=== PATIENT | female | born 2000 | race African-American/Black ===

== ENCOUNTER → 2019-10-13 | Outpatient (CLI) | payer OTHER ==
--- NOTE | 2019-10-13 11:11 | RADIOLOGY REPORT (SQ) ---
EXAM DESCRIPTION: T SPINE AP/LAT IMAGES COMPLETED DATE/TIME: 10/13/2019 10:58 am REASON FOR STUDY: PAIN IN THORACIC SPINE M54.2 CERVICALGIA M54.6 PAIN IN THORACIC SPINE COMPARISON: None. NUMBER OF VIEWS: Two views. TECHNIQUE: AP and lateral radiographic images acquired of the thoracic spine. LIMITATIONS: None. FINDINGS: MINERALIZATION: Normal. ALIGNMENT: Minimal levoconvex lumbar curvature. VERTEBRAE: No fracture or bone lesion. Maintained height, normal segmentation. DISCS: No significant loss of height or significant narrowing. No large osteophytes. HARDWARE: None in the spine. MEDIASTINUM AND SOFT TISSUES: Normal heart size and aortic contour. No soft tissue abnormality. VISUALIZED LUNG KHANNA: Clear. OTHER: No other significant finding. IMPRESSION: No evidence of acute bony abnormality. Minimal levoconvex lumbar curvature. TECHNICAL DOCUMENTATION: JOB ID: [id number] 2010 [employer]- All Rights Reserved Reading location - IP/workstation name: [email or web address]
--- NOTE | 2019-10-13 11:12 | RADIOLOGY REPORT (SQ) ---
EXAM DESCRIPTION: C SP 4 OR 5 VIEWS IMAGES COMPLETED DATE/TIME: 10/13/2019 10:58 am REASON FOR STUDY: CERVICALGIA M54.2 CERVICALGIA M54.6 PAIN IN THORACIC SPINE COMPARISON: None. NUMBER OF VIEWS: 6 views. TECHNIQUE: AP, lateral, obliques and odontoid radiographic images acquired of the cervical spine. LIMITATIONS: None. FINDINGS: MINERALIZATION: Normal. ALIGNMENT: Straightening of the normal cervical lordosis, likely position. VERTEBRAE: Vertebral bodies of normal height. DISCS: No significant osteophytes or sclerosis. Disc height maintained. FORAMINA: No osteophytes or foraminal narrowing. LATERAL AND POSTERIOR ELEMENTS: Facets, lateral masses and spinous processes without significant find ings. HARDWARE: None in the spine. SOFT TISSUES: No masses or calcifications. Lung apices clear. OTHER: No other significant finding. IMPRESSION: No evidence of acute bony abnormality of the cervical spine. No significant degenerativ e change. Straightening of the normal cervical lordosis, likely positional. TECHNICAL DOCUMENTATION: JOB ID: [id number] 2010 [employer]- All Rights Reserved Reading location - IP/workstation name: [email or web address]
== END ==
LOC: OD 10:11
PROVIDERS: ATTEND Nurse Practitioner Family
DX: M54.2 Cervicalgia (principal); M54.6 Pain in thoracic spine; M43.8X4 Other specified deforming dorsopathies, thoracic region
CPT/HCPCS: 72050; 72070

== ENCOUNTER 2019-12-22 19:16 | Emergency (ER) | payer OTHER ==
--- NOTE | 2019-12-22 20:03 | ER Document Report ---
ED Medical Screen (RME) - General Chief Complaint: Vaginal Bleeding Stated Complaint: VAGINAL BLEEDING/ABDOMINAL PAIN Time Seen by Provider: 12/22/19 20:01 Primary Care Provider: CELESTE CUMMINGS NP [Primary Care Provider] - Follow up as needed Mode of Arrival: Wheelchair Information source: Patient Notes: 19-year-old female presents to ED for complaint of vaginal bleeding that started this morning. She states that last week she had severe abdominal pain cramping feeling hot feeling like she was go flush over. She states her primary care doctor told her to stop taking the control pill she was on and to start a different 1. She states she stopped 1 but did not start another 1 and then she started having her period today. She states she is not she does not think. She is alert oriented respirations regular and unlabored speaking in full sentences. She does have abdominal pain bilateral next week. She states she does feel nauseated but has not had any emesis. She states she had a similar thing [place] to [place] in another state and the car blew it off and did not ever really tell her what was wrong. She states she did have a very large cyst at that time and then the next time she saw someone they told was she did not have a cyst anymore. I have greeted and performed a rapid initial assessment of this patient. A comprehensive ED assessment and evaluation of the patient, analysis of test results and completion of medical decision making process will be conducted by an additional ED providers. - Related Data Allergies/Adverse Reactions: grass pollen Allergy (Verified 12/22/19 20:01) DUST Allergy (Uncoded 12/22/19 20:01) Physical Exam - Vital signs Vitals: Temp Pulse Resp BP Pulse Ox 98.6 F 81 20 123/82 100 12/22/19 19:33 12/22/19 19:33 12/22/19 19:33 12/22/19 19:33 12/22/19 19:33 Course - Vital Signs Vital signs: Temp Pulse Resp BP Pulse Ox 98.6 F 81 20 123/82 100 12/22/19 19:33 12/22/19 19:33 12/22/19 19:33 12/22/19 19:33 12/22/19 19:33 Doctor's Discharge - Discharge Referrals: CELESTE CUMMINGS NP [Primary Care Provider] - Follow up as needed
--- NOTE | 2019-12-22 20:54 | RADIOLOGY REPORT (SQ) ---
US PELVIS HISTORY: Pelvic pain. Vaginal bleeding. COMPARISON: None. TECHNIQUE: Grayscale, color Doppler, and spectral Doppler ultrasound images of the pelvis were obtained. FINDINGS: The uterus is retroverted and measures 7.0 x 4.1 x 3.7 cm. The endometrium is 3 mm in thickness. The cervix is 2.1 cm and is closed. Both ovaries are normal in size and contain normal follicles, with the right ovary measuring 3.4 x 2.5 x 2.1 cm and the left ovary measuring 3.1 x 2.4 x 1.8 cm. No free fluid is seen. IMPRESSION: Normal pelvic ultrasound.
[2019-12-22 22:19] LABS: ABSOLUTE BASOPHILS # (AUTO) 0.1 10^3/uL (0.0-0.2); ABSOLUTE EOSINOPHILS # (AUTO) 0.1 10^3/uL (0.0-0.6); ABSOLUTE LYMPHOCYTES (AUTO) 4.2 10^3/uL (0.5-4.7); ABSOLUTE MONOCYTES (AUTO) 0.5 10^3/uL (0.1-1.4); ABSOLUTE NEUT (AUTO) 4.3 10^3/uL (1.7-8.2); BASOPHILS % (AUTO) 0.6 % (0-2); EOSINOPHILS % (AUTO) 1.5 % (0-6); HEMATOCRIT 39.3 % (36.0-47.0); HEMOGLOBIN 13.3 g/dL (12.0-15.5); LYMPHOCYTES % (AUTO) 45.9 % (13-45); MEAN CORPUSCULAR HEMOGLOBIN 29.6 pg (27.0-33.4); MEAN CORPUSCULAR HGB CONC 33.7 g/dL (32.0-36.0); MEAN CORPUSCULAR VOLUME 88 fl (80-97); MONOCYTES % (AUTO) 5.8 % (3-13); PLATELET COUNT 239 10^3/uL (150-450); RED BLOOD COUNT 4.47 10^6/uL (3.72-5.28); RED CELL DISTRIBUTION WIDTH 13.9 % (11.5-14.0); SEGMENTED NEUTROPHILS % (AUTO) 46.2 % (42-78); TOTAL CELLS COUNTED % (AUTO) 100 %; WHITE BLOOD COUNT 9.2 10^3/uL (4.0-10.5)
[2019-12-22 22:31] LABS: APPEARANCE,URINE CLOUDY; BILIRUBIN,URINE NEGATIVE (NEGATIVE); COLOR,URINE YELLOW; GLUCOSE, URINE NEGATIVE (NEGATIVE); KETONES,URINE NEGATIVE (NEGATIVE); LEUKOCYTE ESTERASE,URINE NEGATIVE (NEGATIVE); NITRITE,URINE NEGATIVE (NEGATIVE); PROTEIN,URINE 100 mg/dL (NEGATIVE); URINE SPECIFIC GRAVITY 1.027
[2019-12-22 22:38] LABS: ALBUMIN 4.2 g/dL (3.5-5.0); ALKALINE PHOSPHATASE 82 U/L (38-126); ANION GAP 7 (5-19); ASPARTATE AMINO TRANSFERASE 29 U/L (14-36); BILIRUBIN,TOTAL 0.3 mg/dL (0.2-1.3); BLOOD UREA NITROGEN 10 mg/dL (7-20); CALCIUM 9.6 mg/dL (8.4-10.2); CARBON DIOXIDE 26 mmol/L (22-30); CHLORIDE 104 mmol/L (98-107); GLUCOSE 78 mg/dL (75-110); TOTAL PROTEIN 7.5 g/dL (6.3-8.2)
[2019-12-23] MEDS ORDERED: FAMOTIDINE 20 MG TABLET PO ONE (03:32)
--- NOTE | 2019-12-23 04:46 | ER Document Report ---
ED General - General Chief Complaint: Vaginal Bleeding Stated Complaint: VAGINAL BLEEDING/ABDOMINAL PAIN Time Seen by Provider: 12/22/19 20:01 Primary Care Provider: ED SCHNEIDER MD [ACTIVE STAFF] - Follow up as needed CELESTE CUMMINGS NP [NURSE PRACTITIONER] - Follow up as needed Mode of Arrival: Wheelchair - [facility] Notes: 19-year-old female history of ovarian cysts presents with unexpected vaginal bleeding. Patient had previously been on low-dose OCP and was switched to a higher dose estrogen because she did not like side effects then patient stopped taking OCP altogether several days before bleeding began. She presented to ED in the evening after bleeding had started the same morning and patient is 2-4 pads total throughout that time for the bleeding. Patient denies blood being heavier than her normal menstrual bleeding but says is different, unable to explain how. Patient on the day of presentation felt generally weak and lightheaded and "not herself "and she had one episode where she felt like her chest ache diffusely and she could not breathe while she was at work which resolved several hours before presenting to ED. patient denies vaginal discharge, pelvic pain, syncope, exertional chest pain, pleuritic chest pain, lower extremity edema, recent travel/trauma/immobilization, cancer history, cardiac history, family history, fever, cough, urinary symptoms, drug use - Related Data Allergies/Adverse Reactions: grass pollen Allergy (Verified 12/22/19 20:01) DUST Allergy (Uncoded 12/22/19 20:01) Past Medical History - General Information source: Patient - Social History Smoking Status: Never Smoker Frequency of alcohol use: None Drug Abuse: None Family History: Reviewed & Not Pertinent Patient has homicidal ideation: No Review of Systems - Review of Systems Notes: REVIEW OF SYSTEMS: CONSTITUTIONAL : Denies fever, chills, or sweats. EENT: Denies recent cold/sinus symptoms, denies throat pain CARDIOVASCULAR: + chest pain, -ADRI RESPIRATORY: Denies cough, +shortness of breath. GASTROINTESTINAL: Denies abdominal pain, nausea/vomiting. GENITOURINARY: Denies difficulty urinating, painful urination. FEMALE GENITOURINARY: + abnormal vaginal bleeding, -vaginal discharge. MUSCULOSKELETAL: Denies neck pain, back pain. SKIN: Denies rash or skin lesions. HEMATOLOGIC : Denies easy bruising or bleeding. LYMPHATIC: Denies swollen, enlarged glands. NEUROLOGICAL: Denies headache, denies change in gait. PSYCHIATRIC: Denies anxiety or stress or depression. Physical Exam - Vital signs Vitals: Temp 98.6 F 12/22/19 19:17 - Notes Notes: PHYSICAL EXAMINATION: GENERAL: Well-appearing, well-nourished and in no acute distress. HEAD: Atraumatic, normocephalic. EYES: Pupils equal round and appropriate constriction, sclera anicteric, conjunctiva are normal. ENT: nares patent, moist mucous membranes. NECK: Normal range of motion, supple without lymphadenopathy LUNGS: Breath sounds clear to auscultation bilaterally and equal. No wheezes rales or rhonchi. HEART: Regular rate and rhythm without murmurs ABDOMEN: Soft, nontender, no guarding, no masses, no CVAT EXTREMITIES: Normal range of motion, no pitting or edema. No cyanosis. NEUROLOGICAL: Awake, alert, conversing appropriately, moves all extremities spontaneously. PSYCH: Normal mood, normal affect. SKIN: Warm, Dry, normal turgor, no rashes or lesions noted. Course - Re-evaluation Re-evalutation: 12/23/19 05:00 Episode of near syncope and shortness of breath noted hours prior to arrival, given the patient was recently on exogenous estrogen ordered d-dimer to rule out PE as patient's well score was 0. 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 Ordered troponin which was negative and sufficient to rule out ACS given amount of time passed since episode of symptoms. Amounts of vaginal bleeding for menses and expected for patient appropriate for continuing OCP. Patient declined pelvic exam, but unlikely to have contributed meaningfully to patient's evaluation. Patient's hemoglobin was normal. Had extensive discussion with john cook regarding finding of WPW and described what this diagnosis meant in layman's terms and how this could lead to life-threatening/fatal arrhythmias and that it was extremely important that she follow-up with a credit cashier promptly to have evaluation for possible need for medical or ablative management. I gave patient a copy of her EKG and also a copy of all of her test results and imaging. I gave patient a cardiology referral and reiterated the importance of this close follow-up. I also instructed patient to follow-up with PCP and bring all test results when she was for follow-up. Gave patient extensive return to ED precautions which she demonstrated understanding of. - Vital Signs Vital signs: Temp Pulse Resp BP Pulse Ox 98.2 F 85 14 117/68 100 12/23/19 05:08 12/23/19 05:08 12/23/19 05:08 12/23/19 05:08 12/23/19 05:08 - Laboratory Result Diagrams: 12/22/19 22:08 12/22/19 22:08 Laboratory results interpreted by me: 12/22/19 12/22/19 22:08 22:08 Lymph % (Auto) 45.9 H Urine Protein 100 H Urine Blood LARGE H Urine Urobilinogen 2.0 H Urine Ascorbic Acid 20 H - EKG Interpretation by Me Additional EKG results interpreted by me: 12/23/19 05:00 Heart rate 82, sinus rhythm with delta waves consistent with WPW, no significant ST elevations or depressions, QTC 444 Discharge - 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 Causes of abnormal vaginal bleeding can include miscarriage or tubal , tumors such as cancer or benign fibroids, medication effects, or hormone imbalance. Testing can eliminate unsuspected , tumors, or infection as a cause. "Dysfunctional uterine bleeding" is due to hormone imbalance, and is danni cially common at times when the normal cycle is disturbed -- whether by recent , use of control pills or hormones, or impending menopause. If the bleeding is innocent, most commonly a short course of hormones is given to restore the uterus to normal. Sometimes, the normal menstrual cycle corrects itself naturally. Sometimes, brief hormone therapy, or even a D&C is required. Your physician will advise you. Treatment for anemia may be required if bleeding is severe. You should rest and avoid intercourse until the bleeding is controlled. Call the doctor or return for re-examination if you feel faint, have increasing pain, or have a major increase in the amount of bleeding. Chest Pain of Unclear Cause The exact cause of your chest pain isn't clear. Fortunately, there is no evidence of a dangerous medical condition. Further testing may be required to find the source of the pain. Most often, we find that this pain is coming from the chest wall -- the muscl es or rib joints in the chest. But chest pain can come from the lung and lung lining, the esophagus, the heart valves or heart lining, and even the stomach or gallbladder. Rest. Eat lightly until the pain is gone. We may prescribe medicine for pain and inflammation. You should call the physician immediately if the pain radiates to the shoulder, jaw or arms; if you start to run a fever or develop a cough; or if you develop shortness of breath, or other new or alarming symptoms. We have found you to have a condition called Klklx-Hcpquvmdg-Guymc or WPW. This is an abnormal heart rhythm caused by any normal path of the electricity that moves through your heart. It is extremely important that you see a credit cashier within 1 week to further investigate this condition. If at any point you start having dizziness, worsening chest pain, rapid heart rate or palpitations, fainting, or any other worsening or alarming symptoms return to the ED immediately. Patient also follow-up with your primary care doctor and marketing finance manager within 2 weeks. Forms: Return to Work Referrals: CELESTE CUMMINGS NP [NURSE PRACTITIONER] - Follow up as needed ED SCHNEIDER MD [ACTIVE STAFF] - Follow up as needed
--- NOTE | 2019-12-23 04:46 | RADIOLOGY REPORT (SQ) ---
EXAM DESCRIPTION: XR CHEST 2 VIEWS COMPLETED DATE/TME: 12/23/2019 03:30 CLINICAL HISTORY: cp sob COMPARISON: None. FINDINGS: Frontal and lateral views of the chest. Cardiomediastinal silhouette: Normal size and contour. Lungs: No consolidation, pneumothorax, or pleural effusion. Bones: No acute osseous abnormality. Upper abdomen: No abnormality identified. IMPRESSION: 1. No acute pulmonary process identified.
[2019-12-23] MEDS ORDERED: ACETAMINOPHEN SOLN 325 MG/10.15 ML UDCUP PO ONE (05:07)
[2019-12-23 05:14] VITALS: BP 117/68
--- NOTE | 2019-12-23 08:04 | EKG REPORT ---
SEVERITY:- ABNORMAL ECG - SINUS RHYTHM VENT PREEXCITATION, RIGHT ACCESSORY PATHWAY : Confirmed by: Tila Marsh MD 23-Dec-2019 08:03:29
== END 2019-12-23 05:26 | disposition home or self-care (01) ==
LOC: ER 19:16
DX: I45.6 Pre-excitation syndrome (principal); N93.9 Abnormal uterine and vaginal bleeding, unspecified; R07.9 Chest pain, unspecified; R55 Syncope and collapse; R06.02 Shortness of breath; Z79.899 Other long term (current) drug therapy; Z88.8 Allergy status to other drugs, medicaments and biological substances
CPT/HCPCS: 93005; 99284; 36415; 84703; 85025; 80053; 81001; 84484; 85379; 71046; 76830; 93010; J3490

== ENCOUNTER 2020-03-29 04:54 | Emergency (ER) | payer OTHER ==
[2020-03-29] MEDS ORDERED: TRANEXAMIC ACID INJ/PF 1,000 MG/10 ML SDV IV STA (05:23)
--- NOTE | 2020-03-29 05:33 | ER Document Report ---
ED Medical Screen (RME) - General Chief Complaint: Post Surgical Bleeding Stated Complaint: POST OP BLEEDING,SYNCOPE Primary Care Provider: RIGO HYLTON MD [Primary Care Provider] - Follow up as needed Notes: 19-year-old female history of dysfunctional uterine bleeding presents with vaginal bleeding status post vaginal laparoscopy yesterday afternoon during which she says a polyp was removed by Dr. Verdugo. Patient says that she now feels weak and had one episode of syncope prior to arrival without any trauma. Unable to describe how many pads she has used since procedure. Patient denies any fever, abdominal pain/pelvic pain, anticoagulation/bleeding diatheses - Related Data Allergies/Adverse Reactions: grass pollen Allergy (Verified 12/22/19 20:01) DUST Allergy (Uncoded 12/22/19 20:01) Past Medical History - General Information source: Patient, [facility] Records Review of Systems - Review of Systems Constitutional: denies: Chills, Fever Physical Exam - Vital signs Vitals: Temp Pulse Resp BP Pulse Ox 98.1 F 76 18 107/82 100 03/29/20 05:00 03/29/20 05:00 03/29/20 05:00 03/29/20 05:00 03/29/20 05:00 - Notes Notes: Soaked sanitary pad with several large clots, no active bleeding from vagina Course - Re-evaluation Re-evalutation: Soaked sanitary pad with large clots on current examination was placed before patient went to bed yesterday evening, bleeding appears to have slowed, vitals normal, bloods being obtained and IV access established, ordered TXA to increase chance of nonsurgical hemostasis, but patient hemodynamically stable and will defer rest of patient's evaluation to incoming provider. Will continue to monitor patient. I have greeted and performed a rapid initial assessment of this patient. A comprehensive ED assessment and evaluation of the patient, analysis of test results and completion of medical decision making process will be conducted by additional ED provider(s). - Vital Signs Vital signs: Temp Pulse Resp BP Pulse Ox 98.1 F 76 18 107/82 100 03/29/20 05:00 03/29/20 05:00 03/29/20 05:00 03/29/20 05:00 03/29/20 05:00 - EKG Interpretation by Me Additional EKG results interpreted by me: 03/29/20 05:31 Heart rate 84, normal sinus rhythm, no significant ST elevations or depressions, normal intervals isolated T wave inversion in aVL, no significant change from prior EKG Doctor's Discharge - Discharge Referrals: RIGO HYLTON MD [Primary Care Provider] - Follow up as needed
[2020-03-29 06:10] LABS: ABSOLUTE LYMPHOCYTES (AUTO) 1.8 10^3/uL (0.5-4.7); ABSOLUTE MONOCYTES (AUTO) 0.6 10^3/uL (0.1-1.4); ALBUMIN 2.9 g/dL (3.5-5.0); ALKALINE PHOSPHATASE 56 U/L (38-126); ANION GAP 7 (5-19); ASPARTATE AMINO TRANSFERASE 27 U/L (14-36); BASOPHILS % (AUTO) 0.3 % (0-2); BILIRUBIN,DIRECT 0.2 mg/dL (0.0-0.4); BILIRUBIN,TOTAL 0.3 mg/dL (0.2-1.3); BLOOD UREA NITROGEN 14 mg/dL (7-20); CARBON DIOXIDE 23 mmol/L (22-30); CHLORIDE 107 mmol/L (98-107); GLUCOSE 118 mg/dL (75-110); HEMATOCRIT 29.4 % (36.0-47.0); HEMOGLOBIN 9.9 g/dL (12.0-15.5); LYMPHOCYTES % (AUTO) 13.4 % (13-45); MEAN CORPUSCULAR HEMOGLOBIN 29.3 pg (27.0-33.4); MEAN CORPUSCULAR HGB CONC 33.8 g/dL (32.0-36.0); MEAN CORPUSCULAR VOLUME 87 fl (80-97); MONOCYTES % (AUTO) 4.8 % (3-13); PLATELET COUNT 164 10^3/uL (150-450); RED BLOOD COUNT 3.39 10^6/uL (3.72-5.28); SEGMENTED NEUTROPHILS % (AUTO) 81.5 % (42-78); TOTAL CELLS COUNTED % (AUTO) 100 %; TOTAL PROTEIN 5.4 g/dL (6.3-8.2); WHITE BLOOD COUNT 13.5 10^3/uL (4.0-10.5)
[2020-03-29] MEDS ORDERED: TRANEXAMIC ACID 1,000 MG in DEXTROSE 5%-WATER 50 ML IV ONE (06:15)
[2020-03-29 06:21] LABS: INTERNATIONAL RATION (INR) 1.07; PROTHROMBIN TIME 14.1 SEC (11.4-15.4)
[2020-03-29 06:26] LABS: PARTIAL THROMBOPLASTIN TIME 26.3 SEC (23.5-35.8)
[2020-03-29] MEDS ORDERED: ONDANSETRON 4 MG TAB.RAPDIS PO ONE (06:30)
[2020-03-29] MEDS ORDERED: KETOROLAC TROMETHAMINE INJ/PF 30 MG/1 ML SDV IV ONE (06:30)
[2020-03-29 07:06] LABS: APPEARANCE,URINE CLEAR; BILIRUBIN,URINE NEGATIVE (NEGATIVE); GLUCOSE, URINE NEGATIVE (NEGATIVE); KETONES,URINE NEGATIVE (NEGATIVE); LEUKOCYTE ESTERASE,URINE SMALL (NEGATIVE); NITRITE,URINE NEGATIVE (NEGATIVE); PROTEIN,URINE 30 mg/dL (NEGATIVE); URINE SPECIFIC GRAVITY 1.023
[2020-03-29 07:16] LABS: COLOR,URINE YELLOW
--- NOTE | 2020-03-29 07:29 | RADIOLOGY REPORT (SQ) ---
EXAM DESCRIPTION: CT CERVICAL SPINE WITHOUT IV CONTRAST COMPLETED DATE/TME: 03/29/2020 06:14 CLINICAL HISTORY: fall/pain COMPARISON: None available TECHNIQUE: Axial CT of the cervical spine obtained without contrast. FINDINGS: Straightening of the cervical lordosis may be secondary to patient positioning. The atlantoaxial, atlantodental, and occipitoatlantal intervals are preserved. No fracture identified. Vertebral body height preserved. Prevertebral soft tissues are unremarkable. Intervertebral disc height preserved. Visualized skull base is intact. No fracture of the visualized facial bones. Visualized mastoid air cells and paranasal sinuses are well aerated. Visualized thyroid is unremarkable. No cervical lymphadenopathy. No pneumothorax in the visualized lung apices. IMPRESSION: 1. No acute fracture or subluxation of the cervical spine. This exam was performed according to our departmental dose-optimization program, which includes automated exposure control, adjustment of the mA and/or kV according to patient size and/or use of iterative reconstruction technique.
[2020-03-29] MEDS ORDERED: MORPHINE SULFATE 10 MG/ML INJ IV ONE (07:44)
--- NOTE | 2020-03-29 08:22 | ER Document Report ---
ED General - General Chief Complaint: Post Surgical Bleeding Stated Complaint: POST OP BLEEDING,SYNCOPE Time Seen by Provider: 03/29/20 06:01 Primary Care Provider: RIGO HYLTON MD [Primary Care Provider] - Follow up as needed Mode of Arrival: Ambulatory Information source: Patient - [facility] Notes: Patient presents with vaginal bleeding. Patient had a polyps removed from her uterus yesterday at [facility]. She states that after the operation she has been having vaginal bleeding has soaked 1-2 pads. She states she had a syncopal episode at home prior to arrival. She was helped to the ground does not believe she suffered any trauma but does have some occipital and posterior cervical pain. This pain is constant and mild to moderate. Is worse with movement and better with rest. It does radiate down her neck. She is had some nausea but no vomiting. No fevers. - Related Data Allergies/Adverse Reactions: grass pollen Allergy (Verified 03/29/20 07:45) DUST Allergy (Uncoded 12/22/19 20:01) Past Medical History - General Information source: Patient, [facility] Records - Social History Smoking Status: Never Smoker Family History: Reviewed & Not Pertinent Review of Systems - Review of Systems Constitutional: denies: Chills, Fever Cardiovascular: denies: Chest pain, Palpitations Respiratory: denies: Cough, Short of breath -: Yes All other systems reviewed and negative Physical Exam - Vital signs Vitals: Temp Pulse Resp BP Pulse Ox 98.1 F 76 18 107/82 100 03/29/20 05:00 03/29/20 05:00 03/29/20 05:00 03/29/20 05:00 03/29/20 05:00 Interpretation: Normal - General General appearance: Appears well, Alert - HEENT Head: Normocephalic, Atraumatic Eyes: Normal Pupils: PERRL - Respiratory Respiratory status: No respiratory distress Chest status: Nontender Breath sounds: Normal Chest palpation: Normal - Cardiovascular Rhythm: Regular Heart sounds: Normal auscultation Murmur: No - Abdominal Inspection: Normal Distension: No distension Bowel sounds: Normal Tenderness: Nontender Organomegaly: No organomegaly - Back Back: Normal, Nontender - Extremities General upper extremity: Normal inspection, Nontender, Normal color, Normal ROM, Normal temperature General lower extremity: Normal inspection, Nontender, Normal color, Normal ROM, Normal temperature, Normal weight bearing. No: Markos's sign - Neurological Neuro grossly intact: Yes Cognition: Normal Orientation: AAOx4 [place] Coma Scale Eye Opening: Spontaneous [place] Coma Scale Verbal: Oriented [place] Coma Scale Motor: Obeys Commands [place] Coma Scale Total: 15 Speech: Normal Motor strength normal: LUE, RUE, LLE, RLE Sensory: Normal - Psychological Associated symptoms: Normal affect, Normal mood - Skin Skin Temperature: Warm Skin Moisture: Dry Skin Color: Normal Course - Re-evaluation Re-evalutation: 03/29/20 08:21 Patient presents with vaginal bleeding after a polyp was removed from the uterus yesterday. The surgery was at [facility]. Patient's vital signs been stable here. Abdominal exam is unremarkable. Patient is nontoxic and talking on the phone the entire time. Patient has also received TXA and normal saline. She states that she still feels somewhat uncomfortable going home because she feels that she is still having excessive bleeding. I do not find any signs of excessive bleeding on my exam. I have discussed the case with the surgeon at [facility] who is currently working on arranging an appointment in the office today. 03/29/20 08:31 Patient states she has been called by Dr. Verdugo and she has an appointment in approximately 3 hours in his office. I feel this is a reasonable disposition. - Vital Signs Vital signs: Temp Pulse Resp BP Pulse Ox 98.1 F 76 15 114/68 100 03/29/20 05:00 03/29/20 05:00 03/29/20 07:06 03/29/20 07:06 03/29/20 07:06 - Laboratory Result Diagrams: 03/29/20 05:09 03/29/20 05:09 Laboratory results interpreted by me: 03/29/20 03/29/20 03/29/20 05:09 05:09 06:38 WBC 13.5 H RBC 3.39 L Hgb 9.9 L Hct 29.4 L Absolute Neuts (auto) 11.0 H Seg Neutrophils % 81.5 H Sodium 136.5 L Glucose 118 H Total Protein 5.4 L Albumin 2.9 L Urine Protein 30 H Urine Blood LARGE H Urine Urobilinogen 2.0 H Ur Leukocyte Esterase SMALL H Discharge - Discharge Clinical Impression: Vaginal bleeding Condition: Stable Disposition: HOME, SELF-CARE Instructions: Vaginal Bleeding ([facility]) Additional Instructions: Please go to Dr. Verdugo's office as scheduled today. Forms: Return to Work Referrals: RIGO HYLTON MD [Primary Care Provider] - Follow up as needed
[2020-03-29 09:00] VITALS: BP 103/69
== END 2020-03-29 09:00 | disposition home or self-care (01) ==
LOC: ER 04:54
DX: N93.8 Other specified abnormal uterine and vaginal bleeding (principal); R55 Syncope and collapse
CPT/HCPCS: 99285; 96374; 96375; 86900; 86901; 36415; 86850; 83690; 85025; 85610; 85730; 81025; 80053; 81001; 72125; S0119; J1885; J2270; J3490